=== PATIENT | male | born 1985 | race Two or more races ===

== ENCOUNTER 2021-04-05 11:48 | Emergency (ER) | payer OTHER ==
[~2021-04-05] VITALS: Ht 175.3 cm; Wt 75.0 kg
[2021-04-05 11:49] VITALS: BP 124/82
== END 2021-04-05 14:37 | disposition home or self-care (01) ==
LOC: EMS 11:54
DX: J02.9 Acute pharyngitis, unspecified (principal); R09.81 Nasal congestion
CPT/HCPCS: 87430; 99283